=== PATIENT | female | born 1955 | race Caucasian/White ===

== ENCOUNTER 2023-05-14 14:40 | Emergency (ER) | payer MEDICARE, SELFPAY ==
[2023-05-14] VITALS (11 sets, daily range): BP systolic 132–170; BP diastolic 68–73; PULSE 65–74; RESP 16–20; TEMP 36.9; O2SAT 93–98; BMI 35.9
--- NOTE | 2023-05-14 14:49 | DI.RAD.S_ITS ---
PROCEDURE: XR SHOULDER LT MIN 2V INDICATIONS: fall, shoulder and humerus pain TECHNIQUE: 2 views of the shoulder were acquired. COMPARISON: [facility], CR, XR HUMERUS LT 2V, 05/14/2023, 14:44. FINDINGS: Nonstandard projections. Bones: There is a comminuted humeral head and neck fracture. Possible anterior inferior dislocation of the humeral head. No suspicious bony lesions. Left superior rib fractures are seen, indeterminate chronicity. Soft tissues: No suspicious soft tissue calcifications. IMPRESSION: 1. Comminuted humeral head and neck fracture. 2. Possible anterior inferior dislocation of the humeral head probably due to nonstandard projection. On the humeral x-ray the humeral head is anatomically seated. Dictated by: Sole Ma M.D. on 05/14/2023 at 15:55 Approved by: Sole Ma M.D. on 05/14/2023 at 15:58
--- NOTE | 2023-05-14 14:50 | DI.RAD.S_ITS ---
PROCEDURE: XR HUMERUS LT 2V INDICATIONS: mechanical fall swelling TECHNIQUE: 2 views of the humerus were acquired. COMPARISON: None. FINDINGS: Bones: There is a displaced comminuted humeral head/neck fracture. Fracture lucencies extend to the greater tubercle. There is inferior subluxation the glenohumeral joint space. Soft tissues: No suspicious soft tissue calcifications. IMPRESSION: Comminuted humeral head and neck fracture extending to the greater tubercle as above. Dictated by: Nicky Regalado M.D. on 05/14/2023 at 15:19 Approved by: Nicky Regalado M.D. on 05/14/2023 at 15:19
[2023-05-14] MEDS: MORPHINE 4 MG/ML INJ IV (16:32)
--- NOTE | 2023-05-14 17:39 | ED.FALL ---
HPI - Fall General Chief Complaint: Fall Stated Complaint: Mechanical GLF Time Seen by Provider: 05/14/23 17:38 Source: patient, RN notes reviewed and old records reviewed Mode of arrival: Family Vehicle Limitations: no limitations History of Present Illness HPI Narrative: This is a 68-year-old lady on ursodiol for primary biliary cholangitis, diuretic who is not anticoagulated. Patient states she was walking today she caught her foot on a edge of a sidewalk fell forwards struck her chin and her left upper extremity. Patient has obvious pain in her left upper extremity, no numbness, tingling or weakness. She has normal program director bilaterally and can move her hand and elbow without much issue. She does notice a little bit of right rib pain. She denies headache, no neck pain, no loss of consciousness. No shortness of breath. No pelvic or low back pain. No numbness or tingling in her other extremities. She states she did have abrasion on her right knee. She is unsure of her tetanus status. Patient states she is had prior orthopedic surgeries for bilateral knees in the past. Patient denies any drug allergies. No tobacco, alcohol or illicit. She lives in [place] and is expected to return Wednesday by flight. Related Data Previous Rx's Medication Instructions Recorded oxycodone 5 mg tablet 5 mg PO Q6H PRN pain #20 tabs 05/14/23 Allergies Allergy/AdvReac Type Severity Reaction Status Date / Time No Known Drug Allergies Allergy Verified 05/14/23 16:24 Review of Systems Review of Systems ROS Unobtainable: All systems reviewed & are unremarkable except as noted in HPI and below Exam Narrative Exam Narrative: GEN: Patient appears in moderate distress. HEAD: No evidence of trauma, no raccoon/Summers sign. NECK: Nontender, painless range of motion, trachea midline Negative for Nexus criteria, there is no midline line tenderness, distracting injury, altered mental status, neuro deficit, recent EtOH. EYES: PERRLA, EOMI ENT: External inspection normal, trachea is midline, TM's are normal no hemotypanum, Nares are clear, no septal hematoma, no dental or oral injury, airway is normal and with normal occlusion, No bony tenderness RESP: Chest is tender in the left and has symmetric movement, no ecchymosis, breath sounds are normal no crackles, wheezes or rales CVS: Heart sounds are normal, no murmur noted, No JVD. ABG/GI: Nontender, soft, normal bowel sounds, no distention, no organomegaly, pelvic rock is negative NEURO: Oriented AOx3, neuro is grossly intact, sensation and motor is normal all 4 extremities moving, cranial nerves II through XII are intact, GCS is[default value] PSYCH: Normal mood and affect SKIN: Patient has a abrasion on right knee, warm and dry, no crepitus and without decubitus BACK: No CVA tenderness, no vertebral tenderness, no step-off's, no crepitus EXT: Patient has tenderness left upper extremity, some mild swelling. No obvious ecchymosis. Patient has 2+ radial pulses bilaterally. Education Nurse are equal bilaterally with normal flexion-extension adduction and abduction in all 5 fingers, the elbow. Patient has cap refill less than 2 seconds in all 5 fingers with no numbness or tingling. Hips are nontender, no pedal edema, normal color and temperature, normal range of motion of extremities with normal tendon exam, 2+ pulses in all four extremities Initial Vital Signs Initial Vital Signs: Vital Signs Temperature 98.4 F 05/14/23 14:46 Pulse Rate 67 05/14/23 14:46 Respiratory Rate 16 05/14/23 14:46 Blood Pressure 132/68 05/14/23 14:46 Pulse Oximetry 94 05/14/23 14:46 Oxygen Delivery Method Room Air 05/14/23 14:46 Course Orders Ordered: ED Orders 05/14/23 14:49 XR shoulder LT min 2V Stat 05/14/23 14:50 XR humerus LT 2V Stat 05/14/23 18:01 CT UE LT wo con Stat Chest [XR chest 1V] Stat Discontinued Medications Diphtheria/Tetanus/Acell Pertussis (Tet,Diph,Pertuss(Acell),Vac/Pf 0.5 Ml Syringe) 0.5 ml IM .ONCE ONE Stop: 05/14/23 17:48 Last Admin: 05/14/23 18:57 Dose: 0.5 ml Documented By: ST Morphine Sulfate (Morphine 4 Mg/Ml Inj) 4 mg IV NOW ONE Stop: 05/14/23 16:28 Last Admin: 05/14/23 16:32 Dose: 4 mg Documented By: ST Vital Signs Vital signs: Vital Signs - 8 hr 05/14/23 14:46 05/14/23 16:02 05/14/23 16:03 Temperature 98.4 F Pulse Rate 67 67 Respiratory Rate 16 Blood Pressure 132/68 150/70 H Pulse Oximetry 94 96 Oxygen Delivery Method Room Air 05/14/23 16:03 Temperature Pulse Rate 65 Respiratory Rate Blood Pressure Pulse Oximetry 98 Oxygen Delivery Method MDM - Fall Imaging Data Extremity x-ray #1: Radiologist's Impression: [address] [address] XRay Report Signed Patient: Anastacia Covington MR#: [id number] : 1955 Acct:[id number] Age/Sex: 68 / F Date of Service: 05/14/23 Loc: ED Accession Number: [id number] ?? Procedure: XR humerus LT 2V Ordering Provider: Tenisha Sams D.O. PROCEDURE:? XR HUMERUS LT 2V ? INDICATIONS:? mechanical fall swelling ? TECHNIQUE:? 2 views of the humerus were acquired.? ? COMPARISON:? None. ? FINDINGS:? ? Bones:? There is a displaced comminuted humeral head/neck fracture.? Fracture lucencies extend to the greater tubercle.? There is inferior subluxation the glenohumeral joint space. ? Soft tissues:? No suspicious soft tissue calcifications.? ? IMPRESSION:? Comminuted humeral head and neck fracture extending to the greater tubercle as above. ? ? Dictated by: Nicky Regalado M.D. on 05/14/2023 at 15:19 ? ? Approved by: Nicky Rgealado M.D. on 05/14/2023 at 15:19?? Extremity x-ray #2: Radiologist's Impression: [address] [address] XRay Report Signed Patient: Anastacia Covington MR#: [id number] : 1955 Acct:[id number] Age/Sex: 68 / F Date of Service: 05/14/23 Loc: ED Accession Number: [id number] ?? Procedure: XR shoulder LT min 2V Ordering Provider: Tenisha Sams D.O. PROCEDURE:? XR SHOULDER LT MIN 2V ? INDICATIONS:? fall, shoulder and humerus pain ? TECHNIQUE:? 2 views of the shoulder were acquired.? ? COMPARISON:? [facility], CR, XR HUMERUS LT 2V, 05/14/2023, 14:44. ? FINDINGS:? Nonstandard projections. ? Bones:? There is a comminuted humeral head and neck fracture.? Possible anterior inferior dislocation of the humeral head.? No suspicious bony lesions.? Left superior rib fractures are seen, indeterminate chronicity.? ? Soft tissues:? No suspicious soft tissue calcifications.? ? IMPRESSION:? ? 1. Comminuted humeral head and neck fracture. ? 2. Possible anterior inferior dislocation of the humeral head probably due to nonstandard projection.? On the humeral x-ray the humeral head is anatomically seated.? ? ? Dictated by: Sole Ma M.D. on 05/14/2023 at 15:55 ? ? Approved by: Sole Ma M.D. on 05/14/2023 at 15:58?? CT UE: Radiologist's Impression: [place] [address] CT Scan Report Signed Patient: Anastacia Covington MR#: [id number] : 1955 Acct:[id number] Age/Sex: 68 / F Date of Service: 05/14/23 Loc: ED Accession Number: [id number] ?? Procedure: CT UE LT wo con Ordering Provider: Tenisha Sams D.O. PROCEDURE:? CT UE LT WO CON ? INDICATIONS:? humeral fx. ? TECHNIQUE:? Noncontrast 1-1.5 mm thick sections acquired from the acromioclavicular joint to the inferior scapula, with coronal and sagittal reformatting.? ? COMPARISON:? [facility], CR, XR SHOULDER LT MIN 2V, 05/14/2023, 14:44. ? FINDINGS:? Image quality:? Excellent.? ? Bones:? Comminuted fracture of the proximal humeral head and neck is again seen.? The dominant humeral shaft component is impacted and mildly anteriorly displaced by approximately 7 mm with posterior angulation.? Greater tuberosity component is displaced posteriorly by approximately 10 mm and superiorly by approximately 6 mm.? Lesser tuberosity component is not significantly displaced.? No extension to the medial humeral head articular surface is seen.? Small minimally displaced fracture at the anteroinferior glenoid.? The remaining visualized osseous structures are intact including the visualized left-sided ribs, spine, and left clavicle.? Remote prior healed left-sided rib fractures noted. ? Soft tissues:? Moderate glenohumeral hemarthrosis.? The rotator cuff musculature is normal in bulk.? The tendons, ligaments, articular cartilages, and labrum are not well evaluated with standard CT.? Soft tissue edema and hemorrhage is seen throughout the axilla.? The included left lung is clear. ? IMPRESSION:? 1. Comminuted mildly displaced impacted fracture of the proximal humeral head and neck as described in the body of the report.? Glenohumeral alignment is within normal limits. 2. Minimally displaced fracture of the anteroinferior glenoid. 3. Moderate glenohumeral hemarthrosis.? Prominent surrounding soft tissue edema and hemorrhage is noted throughout the axilla. ? ? ? Approved by: Marcelo Vinson M.D. on 05/14/2023 at 18:45? MDM Narrative Medical decision making narrative: Patient case reviewed with Dr. Fuentes, orthopedic surgery: sling, followup. Recommends CT for surgical planning. Does not appear to have dislocation. Reviewed with patient. Patient nvi, placed in sling, pain improved with medications. Ct imaging obtained and discs given to patient. Reviewed her findings, chest x-ray shows no obvious rib fracture. Does have some cardiomegaly. Patient states she is aware of this. She is sitting up in bed tolerating sling quite well in the room. Plan for short course of oral narcotics, return precautions. These were all reviewed with patient. She has orthopedic surgery available follow up in [place] where she lives discussed the call Wednesday to set follow-up and take disc images with her for follow-up. Discharge Plan Departure Patient Disposition: Home Clinical Impression: Humeral fracture Instructions: DI for Humeral Fracture Activity Restrictions/Additional Instructions: Follow up with orthopedic surgery, call Wednesday for an appointment for follow up. You have a fracture of the proximal humeral head and neck as well as minimally displaced fracture of the anteriorinferior glenoid. Please take the discs with your images to the orthopedic surgeon. You may take 600mg ibuprofen every 6 hours as needed. You may take 1-2 tablets narcotic pain medication every 6 hours as needed. This medication can make you sleepy do not drive, perform hazardous activities or make any major decisions while taking it. This medication will make you constipated please take a stool softener once to twice daily until stools are soft and regular. Prescription sent to Spl[facility]: Keep splint clean and dry. Elevated affected body part to decrease swelling. OK to use ice pack on the affected body part. Use for 15-20 minutes each time, for 5-6x per day. If you develop worsening pain, numbness, tingling, discoloration of the affected body part, adjust the sling, and either see your doctor for an urgent re-assessment, or return to the Emergency Department. Return to the Emergency Department for any new or worsening symptoms. Prescriptions: New oxycodone 5 mg tablet 5 mg PO Q6H PRN (Reason: pain) Qty: 20 0RF Referrals: Meche Fuentes MD [Physician] - Stand Alone Forms: Patient Portal/API
--- NOTE | 2023-05-14 18:01 | DI.RAD.S_ITS ---
PROCEDURE: XR CHEST 1V INDICATIONS: humeral fx. TECHNIQUE: One view of the chest was acquired. COMPARISON: None. FINDINGS: Surgical changes and devices: None. Lungs and pleura: Mild prominence of the central pulmonary vasculature. No acute airspace consolidation. No pleural effusions or pneumothorax. Mediastinum: Mediastinal contours appear normal. Heart size is mildly enlarged. Bones and chest wall: No suspicious bony lesions. Overlying soft tissues appear unremarkable. Left proximal humeral fracture and glenoid fracture not well visualized. IMPRESSION: Mild cardiomegaly with mild prominence of the central pulmonary vasculature, which may indicate mild edema. No pleural effusion or pneumothorax. Approved by: Marcelo Vinson M.D. on 05/14/2023 at 19:11
--- NOTE | 2023-05-14 18:01 | DI.CT.S_ITS ---
PROCEDURE: CT UE LT WO CON INDICATIONS: humeral fx. TECHNIQUE: Noncontrast 1-1.5 mm thick sections acquired from the acromioclavicular joint to the inferior scapula, with coronal and sagittal reformatting. COMPARISON: [facility], CR, XR SHOULDER LT MIN 2V, 05/14/2023, 14:44. FINDINGS: Image quality: Excellent. Bones: Comminuted fracture of the proximal humeral head and neck is again seen. The dominant humeral shaft component is impacted and mildly anteriorly displaced by approximately 7 mm with posterior angulation. Greater tuberosity component is displaced posteriorly by approximately 10 mm and superiorly by approximately 6 mm. Lesser tuberosity component is not significantly displaced. No extension to the medial humeral head articular surface is seen. Small minimally displaced fracture at the anteroinferior glenoid. The remaining visualized osseous structures are intact including the visualized left-sided ribs, spine, and left clavicle. Remote prior healed left-sided rib fractures noted. Soft tissues: Moderate glenohumeral hemarthrosis. The rotator cuff musculature is normal in bulk. The tendons, ligaments, articular cartilages, and labrum are not well evaluated with standard CT. Soft tissue edema and hemorrhage is seen throughout the axilla. The included left lung is clear. IMPRESSION: 1. Comminuted mildly displaced impacted fracture of the proximal humeral head and neck as described in the body of the report. Glenohumeral alignment is within normal limits. 2. Minimally displaced fracture of the anteroinferior glenoid. 3. Moderate glenohumeral hemarthrosis. Prominent surrounding soft tissue edema and hemorrhage is noted throughout the axilla. Approved by: Marcelo Vinson M.D. on 05/14/2023 at 18:45
[2023-05-14] MEDS: TET,DIPH,PERTUSS(ACELL),VAC/PF 0.5 ML SYRINGE IM (18:57)
== END 2023-05-14 19:40 | disposition home or self-care (01) ==
PROVIDERS: Emergency Provider Emergency Medicine
DX: S42.202A Unspecified fracture of upper end of left humerus, initial encounter for closed fracture (principal); S80.211A Abrasion, right knee, initial encounter; R07.81 Pleurodynia; W18.30XA Fall on same level, unspecified, initial encounter; Z23 Encounter for immunization
CPT/HCPCS: 71045; 73030; 73060; 73200; 90471; 96374; 99284; 99285; 90715; J2270